=== PATIENT | male | born 1955 | race African-American/Black ===

== ENCOUNTER → 2016-12-07 | Outpatient (CLI) | payer OTHER ==
[~2016-12-07] MED LIST: SUMA6VIA2 SQ
== END | disposition home or self-care (01) ==
LOC: NM 15:10
PROVIDERS: ATTEND Internal Medicine

== ENCOUNTER → 2016-12-25 | Outpatient (CLI) | payer OTHER ==
--- NOTE | 2016-12-25 15:48 | KCIC ---
PA and lateral chest radiograph. History: Chronic chest pain. Comparison: August 08, 2014. Findings: Cardiomediastinal silhouette is within normal limits for size. Bilateral lung ignacio appear clear without evidence of infiltrate, effusion, or pneumothorax. Impression: 1. No acute cardiopulmonary process. Electronically signed by: Luc Ramos MD (12/25/2016 3:45 PM) [place] [id number]
== END | disposition home or self-care (01) ==
LOC: KCIC 15:25
PROVIDERS: ATTEND Internal Medicine
DX: R07.9 Chest pain, unspecified (principal); G89.29 Other chronic pain
CPT/HCPCS: 71020

== ENCOUNTER → 2017-01-25 | Outpatient (CLI) | payer OTHER ==
--- NOTE | 2017-01-25 14:07 | RAD ---
APPROVED REPORT Test Type: Exercise Stress Nurse/Tech: Gena Dejesus R.N. Test Indications: chest pain Cardiac History: No known cardiac Medications: See Electronic Medical Record Medical History: See Electronic Medical Record Resting ECG: NSR Resting Heart Rate: 66 bpm Resting Blood Pressure: 145/99mmHg Pretest Chest Pain: No chest pain Nurse/Tech Notes S1S2, lungs sound clear Consent: The procedure was explained to the patient in lay terms. Informed consent was witnessed. [place] eout was entered into [employer]. History and Stress Test performed by Gena Dejesus R.N. Stress Symptoms No chest pain or symptoms. POST EXERCISE Reason for Termination: Reached target heart rate Target HR: 133 Max HR: 151 bpm Exercise duration: 6 min., 30 sec. min:sec, 3 Stage Max Blood Pressure: 178/108mmHg Blood Pressure response to exercise: Abnormal increase in blood pressure during stress. Arrhythmia: No. ST Change: Yes. ST depression in Lead II INTERPRETATION Stress EKG Conclusion: Baseline EKG showed sinus rhythm. No ischemic changes at peak stress. No arr hythmias. Rest: Stress: Viability: Radiopharm.Tc99m JgcmvwiwzGt29a Sestamibi Vhjk52yTq 33mCi Duration 15min. 10min. Img Date 01/25/2017 01/25/2017 Inj-Img Ffsf08aly. 60min. Rest Admin Site:IV - Right AntecubitalAdministrator:RT Lorenzo (R)(N) Stress Admin Site: IV - Right AntecubitalAdministrator: RT Lorenzo (R)(N) STRESS DATA End Diast. Vol.91.0mlAv. Heart Rate82.0bpm End Syst. Vol.28.0mlCO Index BSA0.0L/min Myocardial Hmnt627.0gEject. Jfwxiify29.0% Stress Rates Pk. Fill Rate3.78EDV/secLVtime Pk. Fill 214.43msec Pk. Empty Rate4.36ESV/secLVtime Pk. Twpxt370.52msec 02/17 Pk. Fill1.43EDV/sec Stress Scores Regional WT0.00Summed WT1.00 Regional WM0.00Summed WM0.00 Study quality was good. Left Ventricular size was Normal at Rest and Stress. Lung uptake was Normal. Left Ventricular ejection fraction is 69%. The rest and stress images show normal perfusion, normal contraction and thickening. LV Perf. Quant 17 Seg. SSS0.00 17 Seg. SRS0.00 17 Seg. SDS0.00 Stress Defect Extent (% LAD)0.00Rest Defect Extent (% LAD)0.00Rev. Defect Extent (% LAD)0.00 Stress Defect Extent (% LCX) 0.00Rest Defect Extent (% LCX)0.00Rev. Defect Extent (% LCX)0.00 Stress Defect Extent (% RCA)0.00Rest Defect Extent (% RCA)0.00Rev. Defect Extent (% RCA)0.00 Stress Defect Extent (% KO)0.00Rest Defect Extent (% KO)0.00Rev. Defect Extent (% KO)0.00 Conclusion 1. Treadmill exercise cardioisotope stress test did not show any evidence of ischemia or infarct. 2. Normal left ventricular systolic function with ejection fraction calculated at 69%. 3. Low risk for cardiac events.
== END | disposition home or self-care (01) ==
LOC: NM 08:56
PROVIDERS: ATTEND Internal Medicine
DX: I49.5 Sick sinus syndrome (principal)
CPT/HCPCS: 78452; 93017; 96374; 96376; A9500

== ENCOUNTER → 2019-10-05 | Outpatient (CLI) | payer MEDICARE, OTHER ==
[~2019-10-05] MED LIST changes: +SUMA6VIA16 SQ; -SUMA6VIA2 SQ
--- NOTE | 2019-10-06 09:25 | CARD ---
MR#: [id number] Date of Study: 10/05/2019 Ordering Physician: LUIS SORTO, Referring Physician: LUIS SORTO, Tech: Christine Allison RDCS APPROVED REPORT EXAM: Two-dimensional and M-mode echocardiogram with Doppler and color Doppler. Other Information Quality : Good INDICATION Fatigue 2D DIMENSIONS Left Atrium(2D)2.7 (1.6-4.0cm)IVSd0.9 (0.7-1.1cm) Aortic Root(2D)2.8 (2.0-3.7cm)LVDd3.4 (3.9-5.9cm) LVOT Diameter1.9 (1.8-2.4cm)PWd1.0 (0.7-1.1cm) LVDs2.3 (2.5-4.0cm)FS (%) 32.2 % SV30.2 ml Aortic Valve AoV Peak Curtis.103.6cm/sAoV VTI14.9cm AO Peak GR.4.3mmHgLVOT Peak Curtis.102.2cm/s AO Mean GR.2mmHgAVA (VMAX)2.79cm2 RUTH (VTI)3.31qw7ZD P 1/2 Xdwa729jp Mitral Valve MV E Cgddxted95.8cm/sMV DECEL HTHK796jd MV A Qrwfmwue29.2cm/sE/A Ratio0.9 Tricuspid Valve TR P. Tjhbnpdj543es/sRAP WJQVDGBZ1jwVq TR Peak Gr.68tsKpOCMN14waPb Pulmonary Vein S1 Kyvrfbrv26.7cm/sD2 Mavpkdow02.0cm/s LEFT VENTRICLE The left ventricle is normal size. There is mild concentric left ventricular hypertrophy. The left ve ntricular systolic function is normal and the ejection fraction is within normal range. LV ejection f raction of 55-60%. There is normal LV segmental wall motion. RIGHT VENTRICLE The right ventricle is normal size. The right ventricular systolic function is normal. ATRIA The left atrium size is normal. The right atrium size is normal. The interatrial septum is intact wit h no evidence for an atrial septal defect or patent foramen ovale as noted on 2-D or Doppler imaging. AORTIC VALVE The aortic valve is normal in structure and function. Doppler and Color Flow revealed no significant aortic regurgitation. There is no significant aortic valvular stenosis. MITRAL VALVE The mitral valve is normal in structure and function. There is no mitral valve stenosis. Doppler and Color-flow revealed trace mitral regurgitation. TRICUSPID VALVE The tricuspid valve is normal in structure and function. Doppler and Color Flow revealed trace tricus pid regurgitation. The PA pressure was estimated at 21 mmHg. There is no tricuspid valve stenosis. PULMONIC VALVE The pulmonic valve is not well visualized. Doppler and Color Flow revealed no pulmonic valvular regur gitation. There is no pulmonic valvular stenosis. GREAT VESSELS The aortic root is normal in size. The ascending aorta is not well seen. The IVC is normal in size an d collapses >50% with inspiration. PERICARDIAL EFFUSION There is no evidence of significant pericardial effusion. Critical Notification Critical Value: No <Conclusion> The left ventricle is normal size. The left ventricular systolic function is normal and the ejection fraction is within normal range. LV ejection fraction of 55-60%. There is mild concentric left ventricular hypertrophy. Doppler and Color Flow revealed no significant aortic regurgitation. There is no significant aortic valvular stenosis. Doppler and Color-flow revealed trace mitral regurgitation. Doppler and Color Flow revealed trace tricuspid regurgitation. The PA pressure was estimated at 21 mmHg. Signed by : Олег Wayne MD Electronically Approved : 10/06/2019 09:25:05
== END | disposition home or self-care (01) ==
LOC: ECHO 10:41
PROVIDERS: ATTEND Internal Medicine
DX: I51.7 Cardiomegaly (principal); R53.1 Weakness; J30.9 Allergic rhinitis, unspecified
CPT/HCPCS: 93306